=== PATIENT | female | born 1965 | race Caucasian/White ===

== ENCOUNTER → 2017-01-07 | Outpatient (CLI) | payer OTHER ==
[~2017-01-07] MED LIST: /ONDA4TA OR; CIPR500T4 OR; FLEXERIL PO; LIDO5DIS TD; LIDODERM 5% TOP; LISI10TA4 OR; NAPR250T OR; TRAM150C5 PO; TRAZ50TA OR; flexeril PO; motrin PO
--- NOTE | 2017-01-09 09:12 | REP ---
MRI LUMBAR SPINE WITHOUT CONTRAST: 01/07/2017. Comparison: 02/06/2014, X-ray 06/19/2012. Clinical history: Low back pain with radiculopathy bilaterally. Technique: Sagittal T1, T2 and STIR images with axial T1-T2 sequences provided. The normal lordosis is maintained. Disc space heights at L2-3 and L3-4 are maintained and lost at all other levels in the lumbar spine. There is loss of disc water signal at all those levels, least at the L2-3 and L3-4 level. There are some discogenic endplate changes anteriorly at L1-2. Lesser discogenic changes at L4-5 and L5, S1. In the interval, there has been some anterolisthesis of L4 on 5 felt related to facet arthritis. I do not see spondylolysis. At T12-L1, there is no significant disc bulge or herniation and no spinal or foraminal stenosis. The conus terminates at L1-2. At L1-2, minimal disc bulge without spinal or foraminal stenosis. At L2-3, there is a broad-based disc bulge and a left paracentral small disc protrusion. No foraminal encroachment. The neural canal is marginally adequate. Cross-sectional area without lateral recess stenosis. The bulge does abut and slightly displace the left L3 nerve root. At L3-4, there is minimal diffuse disc bulge flattening the ventral thecal sac. Facet hypertrophy and ligamentum flavum hypertrophy noted but cross-sectional area of the canal adequate. Foramina adequate. At L4-5, there is the grade 1 anterolisthesis about 6.5 mm. There is broad-based disc bulge, ligamentum flavum and facet hypertrophy and combined factors are causing fairly tight central canal stenosis at this level. This is significant progression compared to the 2013 study. Foramina show some loss of perineural fat without definite nerve root compression. At L5-S1, there is a broad-based disc bulge flattening the ventral thecal sac. This does not abut or displace the S1 nerve roots within the central canal. The foramina loss of perineural fat. The disc bulges extend into both foramina. There is facet arthritis. Impression: 1. New changes with grade 1 anterolisthesis of L4 on 5 combined with disc bulge, ligamentum flavum and facet hypertrophy to cause a fairly tight spinal stenosis of the central canal foramina marginal but without nerve root compression. 2. New left paracentral disc protrusion at L2-3 abutting the left L3 nerve root in the central canal which otherwise has adequate cross-sectional area. Foramina adequate. 3. Minimal degenerative changes at L1-2 and L3-4 without spinal or foraminal stenosis. 4. The L5-S1 level shows broad-based disc bulge, facet arthritis and foramina only marginal but without nerve root compression. Signed by Trev Pichardo MD 01/09/2017 05:06 P
== END ==
LOC: M RAD 09:34
PROVIDERS: ATTEND Physician Assistant Medical
DX: M43.16 Spondylolisthesis, lumbar region (principal); M48.06 Spinal stenosis, lumbar region; M51.26 Other intervertebral disc displacement, lumbar region; M51.37 Other intervertebral disc degeneration, lumbosacral region; M47.817 Spondylosis without myelopathy or radiculopathy, lumbosacral region

== ENCOUNTER 2017-02-25 17:13 | Emergency (ER) | payer OTHER ==
[~2017-02-25] VITALS: Ht 154.9 cm; Wt 72.6 kg
[2017-02-25 17:15] VITALS: BP 175/102
[2017-02-25] MEDS ORDERED: ALBU17IN (17:26)
[2017-02-25] MEDS ORDERED: ALPR1TAB3 (17:26)
[2017-02-25] MEDS ORDERED: TRAM50TA2 PO (17:26)
[2017-02-25] MEDS ORDERED: ATOR40TA (17:26)
[2017-02-25] MEDS ORDERED: PRAZ2CAP (17:26)
[2017-02-25] MEDS ORDERED: CYCL10TA (17:26)
[2017-02-25] MEDS ORDERED: VITA50003 (17:26)
[2017-02-25] MEDS ORDERED: CLEO300C2 PO (17:52)
[2017-02-25] MEDS ORDERED: CLINDAMYCIN 150 MG CAP PO ONE (18:00)
== END 2017-02-25 18:10 | disposition home or self-care (01) ==
LOC: M ED 17:55
DX: N61.1 Abscess of the breast and nipple (principal); J02.9 Acute pharyngitis, unspecified; Z87.442 Personal history of urinary calculi; M54.5 Low back pain; F41.9 Anxiety disorder, unspecified; F32.9 Major depressive disorder, single episode, unspecified; F17.210 Nicotine dependence, cigarettes, uncomplicated; Z79.899 Other long term (current) drug therapy

== ENCOUNTER → 2017-03-24 | Outpatient (CLI) | payer OTHER ==
[~2017-03-24] MED LIST changes: +ALBU17IN; +ALPR1TAB3; +ATOR40TA; +CLEO300C2 PO; +CYCL10TA; +GASTROGRAFIN SOLUTION 30ML (Q9963) As Ordered ONE; +ISOVUE-370 76% 100ML VIAL (Q9967) As Ordered ONE; +PRAZ2CAP; +TRAM50TA2 PO; +VITA50003
--- NOTE | 2017-03-24 16:27 | REP ---
CT abdomen and pelvis with IV and oral contrast: History: Rectal bleeding and abdominal pain. Black tarry stools. Comparison study: September 17, 2015. CT contrast dose: 100 ml of Isovue [address] findings: Preliminary digital stave jointer view of the abdomen shows an unremarkable bowel gas pattern. The lung bases are clear. There is no evidence of pleural effusion or upper abdominal ascites. The liver and the spleen are normal in size, homogeneous in texture. There is a very small peripheral cyst in the right lobe of the liver near the dome of the diaphragm. This is unchanged. No adrenal lesion is seen on either side. The gallbladder is unremarkable. No pancreatic abnormality is observed. There is focal scarring in the upper pole of the left kidney with two small calcifications, which could be nephrolithiasis. These are unchanged from the prior study as is the cortical atrophy. 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 I do not see duplication beyond the renal pelvis. No ureteral or bladder calculus is observed. Normal caliber aorta is seen. No uterine or adnexal abnormality is observed. A normal appendix is seen. No abdominal wall defect is observed. No bony destructive lesion is seen. There are some degenerative spondylosis changes in the lumbar spine. Impression: Focal scarring and mild collecting system fullness in the upper pole moiety of a partially duplicated left renal collecting system. Two small parenchymal calcifications are seen. This is unchanged from August 2015.2. Otherwise, negative CT study abdomen and pelvis with IV and oral contrast. Normal appendix seen. Signed by Kalia Dey MD 03/24/2017 04:41 P
== END ==
LOC: M RAD 13:42
PROVIDERS: ATTEND Physician Assistant Medical
DX: N28.89 Other specified disorders of kidney and ureter (principal); Q63.8 Other specified congenital malformations of kidney
CPT/HCPCS: 74177; Q9963; Q9967

== ENCOUNTER → 2017-03-28 | Outpatient (CLI) | payer OTHER ==
[~2017-03-28] MED LIST changes: -GASTROGRAFIN SOLUTION 30ML (Q9963) As Ordered ONE; -ISOVUE-370 76% 100ML VIAL (Q9967) As Ordered ONE
--- NOTE | 2017-03-28 22:40 | REP ---
Clinical: Lower back pain. Technique: AP, lateral, bilateral oblique, flexion/extension, and coned-down views of the lumbosacral spine. Findings: Chronic grade 1 anterolisthesis at the L4-5 level of approximately 6 mm is appreciated along with hypertrophic facet changes and minimal disc space narrowing. Advanced hypertrophic facet changes, endplate sclerosis and disc space narrowing with marginal osteophytes noted at the L5-L1 level. Moderate to advanced degenerative disc osteophyte complex noted at the L1-2 level with bridging osteophyte, endplate sclerosis and disc space narrowing. No acute fracture or dislocation. Impression: Chronic stable anterolisthesis at the L4-5 level. Advanced degenerative disc osteophyte complex at the L5-L1 level. Moderate to advanced degenerative disc osteophyte complex at the L1-2 level. Signed by lAtaf Jane MD 03/28/2017 10:31 P
== END ==
LOC: M RAD 13:28
PROVIDERS: ATTEND Neurological Surgery
DX: M43.16 Spondylolisthesis, lumbar region (principal); M25.78 Osteophyte, vertebrae; M54.16 Radiculopathy, lumbar region

== ENCOUNTER → 2017-04-05 | Outpatient (CLI) | payer OTHER ==
--- NOTE | 2017-04-05 15:36 | REP ---
ESOPHAGRAM, AIR CONTRAST: The procedure was performed under the direct supervision of Dr. Dey. The images were reviewed with Dr. Dey. A single view PA chest x-ray is submitted as a construction assistant film. The superior mediastinal structures are midline. The heart size is within normal limits. The lungs are clear. Liquid barium and gas-producing granules were given in the erect position as well as liquid barium in the prone oblique positions in order to perform a double contrast esophagram examination. The oral and pharyngeal stages of deglutition are unremarkable. Note is made of degenerative disc disease of the cervical spine. There is subtle indentation in the right esophagus at the C7 level. This may be related to previous inflammatory disease. There is no mass identified. During esophageal transport there are tertiary waves demonstrated. There is no evidence of esophagitis, stricture, mucosal ring or hiatal hernia. Gastroesophageal reflux is not demonstrated on this examination. IMPRESSION: 1. Tertiary waves. 2. In the right esophagus at the C7 level there is subtle indentation which may be related to previous inflammatory disease. There is no mass identified. 1 minute and 9 seconds of fluoroscopy time was utilized for this procedure. Reviewed by TYLOR Faith 04/06/2017 04:11 PEdited and Signed by Kalia Dey MD 04/06/2017 04:51 P
== END ==
LOC: M RAD 09:06
PROVIDERS: ATTEND Specialist
DX: K21.9 Gastro-esophageal reflux disease without esophagitis (principal)

== ENCOUNTER → 2017-04-05 | Outpatient (CLI) | payer OTHER ==
[~2017-04-05] MED LIST changes: +E-Z-GAS II EFFERVESCENT PACKET (SODIUM BICARB./CITRIC ACID/SIMETHICONE) As Ordered ONE; +E-Z-HD 98% w/w 340GM SUSP BTL As Ordered ONE; +E-Z-PAQUE 96% w/w SUSP 176GM BTL As Ordered ONE
--- NOTE | 2017-04-05 10:08 | REP ---
CT LUMBAR SPINE WITHOUT CONTRAST: HISTORY: Radiculopathy. COMPARISON: MR 01/07/2017. There is no disc bulge or herniation at the L1-2 level. The L1 nerves exit the neural foramina without compression. A diffuse disc bulge and small left paracentral disc protrusion are present at the L2-3 level. There is minimal compression of the thecal sac. The L2 nerves exit the neural foramina without compression. A diffuse disc bulge is present at the L3-4 level. There is minimal compression of the thecal sac. There is hypertrophy of the ligamenta flava and posterior articulating facets. The L3 nerves exit the neural foramina without compression. A diffuse disc bulge is present at the L4-5 level. There is hypertrophy of the ligamenta flava and posterior articulating facets. There are 6 mm of grade 1 spondylolisthesis of L4 on 5. These findings produce severe central canal stenosis. There is compression of the L4 nerves in the neural foramina. A diffuse disc bulge is present at the L5-S1 level. There is minimal compression of the thecal sac. There is hypertrophy of the posterior articulating facets. There is compression of the L5 nerves in the neural foramina. The L4-5 and L5-S1 intervertebral discs are decreased in height consistent with disc degeneration. The vertebral bodies are normal in height. IMPRESSION: 1. Diffuse disc bulge and small left paracentral disc protrusion at the L2-3 level with minimal thecal sac compression. 2. Diffuse disc bulges at the L3-4 and L5-S1 levels with minimal thecal sac compression. There is compression of the L5 nerves in the neural foramina. 3. Severe central canal stenosis at the L4-5 level secondary to disc bulge, ligamentous and facet hypertrophy and grade 1 spondylolisthesis. There is compression of the L4 nerves in the neural foramina. There is no significant change compared to the previous study. Signed by Rohit Rivas MD 04/05/2017 10:13 A
== END ==
LOC: M RAD 09:10
PROVIDERS: ATTEND Neurological Surgery
DX: M51.06 Intervertebral disc disorders with myelopathy, lumbar region (principal); M48.06 Spinal stenosis, lumbar region; M43.16 Spondylolisthesis, lumbar region

== ENCOUNTER → 2017-04-17 | Outpatient (REF) | payer OTHER ==
[~2017-04-17] MED LIST changes: -E-Z-GAS II EFFERVESCENT PACKET (SODIUM BICARB./CITRIC ACID/SIMETHICONE) As Ordered ONE; -E-Z-HD 98% w/w 340GM SUSP BTL As Ordered ONE; -E-Z-PAQUE 96% w/w SUSP 176GM BTL As Ordered ONE
[2017-04-17 14:31] LABS: CALCIUM OXALATE CRYSTALS MODERATE
== END ==
LOC: M LAB REF 13:20
PROVIDERS: ATTEND Urology
DX: N13.30 Unspecified hydronephrosis (principal)

== ENCOUNTER 2017-09-12 15:57 | Inpatient (IN) | payer OTHER ==
[~2017-09-12] VITALS: Ht 154.9 cm; Wt 80.1 kg
[~2017-09-12 15:57] MED LIST changes: -ATOR40TA; +ATOR40TA75; +VITA1CAP40; -VITA50003
[2017-09-12] MEDS ORDERED: ONDANSETRON 4MG/2ML VIAL (J2405) IV ONE (16:30)
[2017-09-12] MEDS ORDERED: MORPHINE 4 MG/ML 1ML SYRINGE IV ONE (16:30)
[2017-09-12 16:49] LABS: BASO # 0.1 10^3/uL (0.0-0.2); BASO % 0.4 % (0.0-1.0); EOS # 0.2 10^3/uL (0.0-0.50); EOS % 1.4 % (0.0-3.0); IMMATURE GRANULOCYTE % 0.3 % (0-0); LYMPH # 3.3 10^3/uL (1.5-4.5); LYMPH % 20.1 % (24.0-44.0); MEAN CORPUSCULAR HEMOGLOBIN 30.9 pg (27.0-33.0); MEAN CORPUSCULAR HGB CONC 32.7 g/dl (32.0-36.5); MEAN CORPUSCULAR VOLUME 94.5 fl (80.0-96.0); MONO # 1.2 10^3/uL (0.0-0.8); MONO % 7.1 % (0.0-5.0); NEUTROPHILS # 11.7 10^3/uL (1.8-7.7); NEUTROPHILS % 70.7 % (36.0-66.0); PLATELET COUNT, AUTOMATED 347 10^3/uL (150-450); WHITE BLOOD COUNT 16.5 10^3/uL (4.0-10.0)
[2017-09-12 17:14] LABS: CALCIUM LEVEL 9.3 MG/DL (8.5-10.1); CREATININE FOR GFR 1.21 MG/DL (0.55-1.02); GLOMERULAR FILTRATION RATE 49.9 (>51); POTASSIUM SERUM 4.2 MEQ/L (3.5-5.1)
--- NOTE | 2017-09-12 17:24 | REP ---
Clinical: Left flank pain. Comparison: 03/24/2017. Findings: The left kidney demonstrates a focal area of cortical scarring along the upper pole with small nonobstructing intrarenal calculi measuring up to 3 mm and findings to suggest duplication to the collecting system with chronic dilatation of the ureter to the upper pole moiety. No acute hydronephrosis or perinephric stranding is appreciated to suggest obvious acute obstruction. The right kidney/ureter appears normal. The bladder is grossly unremarkable. Liver, spleen, pancreas, gallbladder, and bilateral adrenal glands are normal. The enteric system is without obstruction or acute inflammatory process. Colonic diverticula noted without acute diverticulitis. Normal terminal ileum and appendix identified in the right lower quadrant. Pelvis demonstrates normal bladder and age-appropriate uterus/adnexa. No ascites. No adenopathy. No mass lesion. Atherosclerotic changes of the aorta and vasculature noted without aneurysm. Musculoskeletal structures are intact. 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 No acute perinephric stranding or hydronephrosis is appreciated. Correlation with urinalysis may be warranted. The right kidney and bladder appear normal. Signed by Altaf Jane MD 09/12/2017 05:16 P
[2017-09-12] MEDS: MORPHINE 4 MG/ML 1ML SYRINGE IV PRN ×2 (17:28→18:08)
[2017-09-12] MEDS ORDERED: cefTRIAXone SOD 2 GM in D5W 50 ML IV ONE (18:00)
[2017-09-12] MEDS ORDERED: GABA-282 PO (18:56)
[2017-09-12] MEDS ORDERED: PRAZ2CAP PO (18:56)
[2017-09-12] MEDS ORDERED: ZANA4TAB PO (18:56)
[2017-09-12] MEDS ORDERED: ALPR1TAB3 PO (18:56)
[2017-09-12] MEDS ORDERED: DRIS50002 PO (18:56)
[2017-09-12] MEDS ORDERED: MELO15TA4 PO (18:56)
[2017-09-12] MEDS ORDERED: ATOR40TA75 PO (18:56)
[2017-09-12] MEDS ORDERED: TRAM50TA2 PO (18:56)
[2017-09-12] MEDS ORDERED: VENTAER INH (18:56)
[2017-09-12] MEDS ORDERED: PRAZOSIN 1 MG CAP PO PRN (19:00)
[2017-09-12] MEDS ORDERED: ALBUTEROL 90 MCG/ACT 8GM HFA INHALER INH PRN (19:00)
[2017-09-12] MEDS ORDERED: ONDANSETRON 4MG/2ML VIAL (J2405) IV PRN (19:00)
[2017-09-12] MEDS: KETOROLAC 30 MG/ML VIAL (J1885) IV PRN (19:55)
[2017-09-12 20:40] VITALS: BP 132/84
[2017-09-12] MEDS: NS 1,000 ML IV SCH (20:57)
[2017-09-12] MEDS: GABAPENTIN 300 MG CAP PO SCH (20:58)
[2017-09-12] MEDS: tiZANidine 4 MG TAB PO SCH (20:58)
[2017-09-12] MEDS: HEPARIN SOD (PORCINE) 5000 UNITS/ML VIAL SC SCH (21:01)
--- NOTE | 2017-09-12 21:26 | HPEPDOC ---
General Date of Admission Sep 12, 2017 at 18:49 Other Providers Primary care provider: Batool Jaquez Attending Physician: CADEN DAMON MD Chief Complaint The patient is a 51-year-old female admitted with a reason for visit of Pyelonephritis. Source: Patient, RN notes reviewed, Old records Exam Limitations: No limitations Timing/Duration: 4-6 hours History of Present Illness Ms. Perez is a 51-year-old female who presents to [facility]'s Emergency Department with abdominal pain. Past medical history is significant for: anxiety, kidney stones, lichen simplex chronicus, post-traumatic stress disorder, back pain, hypertension (not currently on medication), dyslipidemia. Patient states that urogenital pain started this afternoon. She initially thought she was starting with a urinary tract infection or yeast infection. Denies specific dysuria (reports that urination improves pain), hematuria, urinary urgency, urinary frequency. Denies recent sexual intercourse. Three hours later, after cooking a roast, she developed left-sided lower quadrant pain. It worsened over the next two hours. Initially rated the pain as 15/10. Currently rates it as 8/10. Describes the pain as a squeezing sensation around a ball that lasts approximately 3-7 seconds. The pain subsides, but then seconds later the pain returns. Admits to a history of kidney stones. Admits to menopause symptoms, including hot flashes, night sweats, back pain, left lower quadrant pain. Denies fever, chills, itchy/watery eyes, runny nose, sore throat, post-nasal drainage, epistaxis, hematemesis, hemoptysis, chest pain, shortness of breath, nausea, vomiting, abdominal pain, constipation, diarrhea, hematochezia, melena, peripheral edema, weakness, numbness, tingling, lightheadedness, dizziness, muscle/joint pain. 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 No acute perinephric stranding or hydronephrosis is appreciated. Correlation with urinalysis may be warranted. The right kidney and bladder appear normal." Morphine was provided for pain relief, but patient reports a significant improvement in her pain. Zofran for nausea. One-time dose of IV Rocephin. Hospitalist service was consulted for admission for further evaluation and treatment. Home Medications Scheduled Atorvastatin Calcium (Atorvastatin Calcium) 40 Mg Tab, 40 MG PO DAILY, (Reported ) Gabapentin (Gabapentin) 300 Mg Cap, 300 MG PO TID, (Reported) NEW MED, NOT STARTED Levofloxacin Hemihydrate (Levaquin) 500 Mg Tab, 500 MG PO DAILY Tizanidine Hydrochloride (Zanaflex) 4 Mg Tab, 4 MG PO TID, (Reported) NEW MED, NOT STARTED Vitamin D (Drisdol) 50,000 Unit Cap, 50,000 UNIT PO QWEEK, (Reported) Scheduled PRN Albuterol Sulfate (Ventolin Hfa) 108 Mcg/Act Aer, 2 PUFFS INH QID PRN for SHORTNESS OF BREATH, (Reported) Alprazolam (Alprazolam) 1 Mg Tab, 1 MG PO Q8H PRN for ANXIETY, (Reported) Meloxicam (Meloxicam) 15 Mg Tab, 15 MG PO DAILY PRN for PAIN, (Reported) Oxycodone/Acetaminophen (Percocet 5MG/325MG Tablet) 1 Tab Tab, 2 TAB PO Q4HP PRN for SEVERE PAIN (PS 8-10) Prazosin Hcl (Prazosin HCl) 2 Mg Cap, 2 MG PO QHS PRN for NIGHTMARES, (Reported) Tramadol HCl (Tramadol HCl) 50 Mg Tab, 50 MG PO for BACK PAIN, (Reported) Allergies Coded Allergies: Bee Venom (Unverified Allergy, Unknown, 09/12/17) Past Medical History Medical History 1. Anxiety 2. History of kidney stones 3. Lichen simplex chronicus 4. Post-traumatic stress disorder 5. Back pain 6. History of hypertension, not on medication currently 7. Dyslipidemia Surgical History 1. Right breast lumpectomy 2. Left meniscal repair 3. Tonsillectomy Family History Adopted Social History Lives independently. No pets in the home. Two adult children - one daughter, one son. Two grandchildren - one girl, one boy. Currently disabled and unable to work. Smokes approximately 1 pack of cigarettes per week and has done so since the age of 16. Will occasional consume alcohol. Denies current illicit drug use. Former cocaine dependence a "long time ago." Review of Symptoms Constitutional: Reports: Fever, Night Sweats, Denies: Chills, Malaise, Weakness Eyes: Denies: Vision change, Conjunctivae inflammation, Eyelid inflammation, Redness ENT: Denies: Head Aches, Ear Pain, Dysphagia, Sinus Congestion, Post Nasal Drip , Sore Throat, Epistaxis Skin: Denies: Rash, Lesions, Jaundice, Bruising, Itching, Dry Pulmonary: Denies: Dyspnea, Cough, Pleuritic Chest Pain Cardiovascular: Denies: Chest Pain, Palpitations, Orthopnea, Paroxysmal Noc. Dyspnea, Edema, Lt Headedness Gastrointestinal: Denies: Nausea, Vomiting, Abdominal Pain, Diarrhea, Constipation, Melena, Hematochezia Genitourinary: Denies: Dysuria, Frequency, Incontinence, Hematuria, Retention Hematologic: Denies: Bruising, Bleeding Excessively, Petecchia, Purpura, Enlarged Lymph Nodes Musculoskeletal: Reports: Back Pain, Other Symptoms (left lower quadrant pain) , Denies: Neck Pain, Joint Pain, Muscle Pain Neurological: Denies: Weakness, Numbness Physical Examination General Exam: Positive: Alert, Cooperative, Moderate Distress Eye Exam: Positive: PERRLA, Conjunctiva & lids normal, EOMI, Negative: Sclera icteric ENT Exam: Positive: Atraumatic, Mucous membr. moist/pink, Pharynx Normal, Tongue Midline, Nares Patent, Negative: Pharyngeal Edema Neck Exam: Positive: Supple, +2 carotid pulse wo bruit, Negative: JVD, thyromegaly, Lymphadenopathy Chest Exam: Positive: Clear to auscultation, Normal air movement Heart Exam: Positive: Rate Normal, Tachycardic, Regular Rhythm, Normal S1, Normal S2, Negative: Gallops, Murmurs, Rubs Telemetry: Positive: Sinus, Tachycardia Abdomen Exam: Positive: BS Hypoactive, Soft, Tenderness, Negative: Hepatospenomegaly, Mass, Hernia Extremity Exam: Positive: Normal pulses (tachycardia), Negative: Clubbing, Cyanosis, Edema, Tenderness, Swelling Skin Exam: Positive: Other skin issue (lichen simple chronicus noted on bilateral upper extremities and upper back) Neuro Exam: Positive: Normal Speech, Strength at 5/5 X4 ext, Cranial Nerves 3- [address] NL Other physical findings CT abdomen and pelvis without contrast IMPRESSION: Findings suggesting 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 No acute perinephric stranding or hydronephrosis is appreciated. Correlation with urinalysis may be warranted. The right kidney and bladder appear normal. Vital Signs Vital Signs Date Time Temp Pulse Resp B/P (MAP) Pulse Ox O2 Delivery O2 Flow Rate FiO2 09/12/17 20:40 96.0 70 16 132/84 (100) 96 Room Air Height (in): 61 Weight (kg): 74.2 BMI (kg): 30.9 Laboratory Data Labs 24H Laboratory Tests 2 09/12/17 16:20: Immature Granulocyte % (Auto) 0.3H, White Blood Count 16.5H, Red Blood Count 4.76, Hemoglobin 14.7, Hematocrit 45.0, Mean Corpuscular Volume 94.5, Mean Corpuscular Hemoglobin 30.9, Mean Corpuscular Hemoglobin Concent 32.7, Red Cell Distribution Width 13.0, Platelet Count 347, Neutrophils (%) (Auto) 70.7H, Lymphocytes (%) (Auto) 20.1L, Monocytes (%) (Auto) 7.1H, Eosinophils (%) (Auto) 1.4, Basophils (%) (Auto) 0.4, Neutrophils # (Auto) 11.7H, Lymphocytes # (Auto) 3.3, Monocytes # (Auto) 1.2H, Eosinophils # (Auto) 0.2, Basophils # (Auto) 0.1, Immature Granulocyte # (Auto) 0.1H, Nucleated Red Blood Cells % (auto) 0.0, Anion Gap 6L, Glomerular Filtration Rate 49.9L, Blood Urea Nitrogen 28H, Creatinine 1.21H, Sodium Level 140, Potassium Level 4.2, Chloride Level 104, Carbon Dioxide Level 30, Calcium Level 9.3 09/12/17 16:30: Urine Appearance CLOUDYH, Urine Color YELLOW, Urine pH 6.0, Urine Specific [place] 1.025, Urine Protein 2+H, Urine Glucose (UA) NEGATIVE, Urine Ketones NEGATIVE, Urine Urobilinogen 0.2, Urine Bilirubin NEGATIVE, Urine Leukocyte Esterase 3+H, Urine Blood 3+H, Urine Nitrite NEGATIVE, Urine WBC (Auto) TNTCH, Urine RBC (Auto) TNTCH, Urine Hyaline Casts (Auto) 0, Urine Bacteria (Auto) 2+H , Urine Squamous Epithelial Cells 0, Urine Amorphous Sediment SMALLH, Urine Sperm (Auto) CBC/BMP Laboratory Tests 09/12/17 16:20 Red Blood Count 4.76, Mean Corpuscular Volume 94.5, Mean Corpuscular Hemoglobin 30.9, Mean Corpuscular Hemoglobin Concent 32.7, Red Cell Distribution Width 13.0 , Neutrophils (%) (Auto) 70.7 H, Lymphocytes (%) (Auto) 20.1 L, Monocytes (%) ( Auto) 7.1 H, Eosinophils (%) (Auto) 1.4, Basophils (%) (Auto) 0.4, Neutrophils # (Auto) 11.7 H, Lymphocytes # (Auto) 3.3, Monocytes # (Auto) 1.2 H, Eosinophils # (Auto) 0.2, Basophils # (Auto) 0.1, Calcium Level 9.3 Microbiology Microbiology 09/12/17 Blood Culture, Received Pending 09/12/17 Blood Culture, Received Pending 09/12/17 Urine Culture, Received Pending Plan / VTE VTE Prophylaxis Ordered?: Yes (Heparin 5,000 SC every 8 hours) Plan Plan Pyelonephritis - IVF @125mLs/hr - IV Rocephin 1g every 24 hours - Percocet 1-2 tabs orally every 4 hours as needed for pain - Toradol 15mg orally every 6 hours as needed for pain - Zofran 4mg IV every 6 hours as needed - Regular diet - Monitor BP; likely elevated secondary to pain Anxiety - Continue with Xanax Post-traumatic stress disorder - Continue with Prazosin Back pain - Continue with Xanaflex and Gabapentin - Held Meloxicam and Tramadol as patient is currently being managed with Toradol and Percocet Dyslipidemia - Continue with Lipitor Disposition Admit: Medical-surgical unit Anticipated hospitalization: 2 nights Attending: Dr. Osiris Valdes IVF: Initiate (IVF @125mLs/hr) Diet: Continue Current (Regular) Activity: Continue Current Medications: Change to IV, Increase Pain Meds (Percocet 1/2 tabs every 4 hours as needed, Toradol 15mg every 6 hours as needed), Start Antibiotics (IV Rocephin 1g every 24 hours) Diagnostics: Check Labs, Repeat Labs in AM, Obtain Cultures GME ATTESTATION GME ATTESTATION My faculty preceptor for this patient encounter was physically present during the encounter and was fully available. All aspects of the patient interview, examination, medical decision making process, and medical care plan development were reviewed and approved by the faculty preceptor. The faculty preceptor is aware and concurs with the plan as stated in the body of this note and will attest to such by his/her cosignature. ATTENDING NOTE I have both independently examined this patient as well as reviewed the H&P. I have discussed in detail with the resident the findings and plan of treatment as documented in the residents note. I will continue to follow the patient and offer further guidance to the patients care as necessary during this hospital stay. VANDANA Landrum MDMELoree Sep 12, 2017 21:26 CADEN DAMON MD Sep 16, 2017 11:27
[2017-09-13] MEDS: NS 1,000 ML IV SCH ×2 (04:45→09:37)
[2017-09-13] MEDS: PERCOCET 5MG/325MG TAB PO PRN ×4 (04:51→22:23)
[2017-09-13] MEDS: ALPRAZolam 0.5 MG TAB PO PRN ×2 (05:45→20:26)
[2017-09-13] MEDS: HEPARIN SOD (PORCINE) 5000 UNITS/ML VIAL SC SCH ×3 (05:47→21:24)
[2017-09-13 06:00] VITALS: BP 122/84
[2017-09-13 06:31] LABS: BASO % 0.4 % (0.0-1.0); EOS # 0.3 10^3/uL (0.0-0.50); EOS % 2.4 % (0.0-3.0); IMMATURE GRANULOCYTE % 0.4 % (0-0); LYMPH # 2.9 10^3/uL (1.5-4.5); LYMPH % 25.2 % (24.0-44.0); MEAN CORPUSCULAR HEMOGLOBIN 31.4 pg (27.0-33.0); MEAN CORPUSCULAR HGB CONC 33.2 g/dl (32.0-36.5); MEAN CORPUSCULAR VOLUME 94.4 fl (80.0-96.0); MONO # 1.2 10^3/uL (0.0-0.8); MONO % 10.2 % (0.0-5.0); NEUTROPHILS % 61.4 % (36.0-66.0); PLATELET COUNT, AUTOMATED 275 10^3/uL (150-450); RED CELL DISTRIBUTION WIDTH 13.2 % (11.5-14.5); WHITE BLOOD COUNT 11.3 10^3/uL (4.0-10.0)
[2017-09-13 06:52] LABS: ANION GAP 8 MEQ/L (8-16); BLOOD UREA NITROGEN 21 MG/DL (7-18); CALCIUM LEVEL 8.1 MG/DL (8.5-10.1); CARBON DIOXIDE LEVEL 22 MEQ/L (21-32); CHLORIDE LEVEL 108 MEQ/L (98-107); CREATININE FOR GFR 0.67 MG/DL (0.55-1.02); GLOMERULAR FILTRATION RATE > 60.0 (>51); GLUCOSE, FASTING 93 MG/DL (70-105); MAGNESIUM LEVEL 1.8 MG/DL (1.8-2.4); POTASSIUM SERUM 4.5 MEQ/L (3.5-5.1); SODIUM LEVEL 138 MEQ/L (136-145)
[2017-09-13] MEDS: KETOROLAC 30 MG/ML VIAL (J1885) IV PRN ×3 (09:31→18:09)
[2017-09-13] MEDS: tiZANidine 4 MG TAB PO SCH ×3 (09:34→20:26)
[2017-09-13] MEDS: GABAPENTIN 300 MG CAP PO SCH ×3 (09:34→20:26)
[2017-09-13] MEDS: ATORVASTATIN 20 MG TAB PO SCH (09:34)
--- NOTE | 2017-09-13 11:10 | IPNPDOC ---
Date Seen The patient was seen on 09/13/17. Progress Note SUBJECTIVE: Patient is a 51-year-old female with past medical history of: anxiety; hx of kidney stones; lichen simplex chronicus; post-traumatic stress disorder; back pain; history of hypertension, not currently treated; dyslipidemia; presenting on 09/13/2017 with pyelonephritis. Today, she was seen bedside, seated in bed in mild apparent distress. She states she had significant pain throughout the night but did not know she could ask for pain medication, which had been ordered. She finally received 2tab Percocet 5/325 at 5am this morning, with relief in pain, currently reporting 5/ 10 down from 8/10 from earlier this morning. Presently she denies fever/chills different from typical menopause symptoms she has, lightheadedness, dizziness, headache, chest pain, difficulty breathing, shortness of breath, cough, nausea, vomiting. OBJECTIVE PHYSICAL EXAMINATION: VITAL SIGNS: Please see below. GENERAL: Well-appearing female in mild apparent distress, appearing her stated age. HEENT: Atraumatic, normocephalic. EOMI. Neck supple. CARDIOVASCULAR: Normal S1/S2, regular rate; no noted rubs, gallops or murmurs RESPIRATORY: Clear to auscultation in all conrad bilaterally. ABDOMINAL: Soft, non-tender, no peritoneal signs. Normoactive bowel sounds. EXTREMITIES: Moving all extremities NEUROLOGICAL: CN II-XII grossly intact PSYCHOLOGICAL: Anxious about pain, hospital course, disease process. Explained that she can ask for medication whenever she is in pain, explained the planned hospital course, and described the disease process which helped to ease her anxiety. LABORATORY DATA: Please see below. MICROBIOLOGY: Please see below. 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 No acute perinephric stranding or hydronephrosis is appreciated. Correlation with urinalysis may be warranted. The right kidney and bladder appear normal. DVT prophylaxis ordered?: Heparin 5000units SQ q8h ASSESSMENT AND PLAN: This is a 51-year-old female with pyelonephritis. PROBLEMS: 1. Pyelonephritis: - NS 125mL/hr IV Q8H. - Ceftriaxone 1g IV q24h. - Percocet 3/325 PO Q4H PRN pain. - Toradol 15mg IV Q6H PRN pain. - Zofran 4mg IV Q6H PRN nausea. - Regular diet. 2. Back pain: - Neurontin 300mg PO TID. - Zanaflex 4mg PO TID. 3. Anxiety: - Alprazolam 1mg PO q8h prn anxiety. DISPOSITION: Med/surg. Likely d/c in the next 24 hours. VS, I&O, 24H, Fishbone Vital Signs/I&O Vital Signs Date Time Temp Pulse Resp B/P (MAP) Pulse Ox O2 Delivery O2 Flow Rate FiO2 09/13/17 06:00 98.0 78 21 122/84 (97) 97 Room Air I&O- Last 24 Hours up to 6 AM 09/14/17 06:00 Intake Total 0 ml Output Total 0 ml Balance 0 ml Laboratory Data 24H LABS Laboratory Tests 2 09/12/17 16:20: Immature Granulocyte % (Auto) 0.3H, White Blood Count 16.5H, Red Blood Count 4.76, Hemoglobin 14.7, Hematocrit 45.0, Mean Corpuscular Volume 94.5, Mean Corpuscular Hemoglobin 30.9, Mean Corpuscular Hemoglobin Concent 32.7, Red Cell Distribution Width 13.0, Platelet Count 347, Neutrophils (%) (Auto) 70.7H, Lymphocytes (%) (Auto) 20.1L, Monocytes (%) (Auto) 7.1H, Eosinophils (%) (Auto) 1.4, Basophils (%) (Auto) 0.4, Neutrophils # (Auto) 11.7H, Lymphocytes # (Auto) 3.3, Monocytes # (Auto) 1.2H, Eosinophils # (Auto) 0.2, Basophils # (Auto) 0.1, Immature Granulocyte # (Auto) 0.1H, Nucleated Red Blood Cells % (auto) 0.0, Anion Gap 6L, Glomerular Filtration Rate 49.9L, Blood Urea Nitrogen 28H, Creatinine 1.21H, Sodium Level 140, Potassium Level 4.2, Chloride Level 104, Carbon Dioxide Level 30, Calcium Level 9.3 09/12/17 16:30: Urine Appearance CLOUDYH, Urine Color YELLOW, Urine pH 6.0, Urine Specific [place] 1.025, Urine Protein 2+H, Urine Glucose (UA) NEGATIVE, Urine Ketones NEGATIVE, Urine Urobilinogen 0.2, Urine Bilirubin NEGATIVE, Urine Leukocyte Esterase 3+H, Urine Blood 3+H, Urine Nitrite NEGATIVE, Urine WBC (Auto) TNTCH, Urine RBC (Auto) TNTCH, Urine Hyaline Casts (Auto) 0, Urine Bacteria (Auto) 2+H , Urine Squamous Epithelial Cells 0, Urine Amorphous Sediment SMALLH, Urine Sperm (Auto) 09/13/17 06:04: Immature Granulocyte % (Auto) 0.4H, White Blood Count 11.3H, Red Blood Count 3.92L, Hemoglobin 12.3#, Hematocrit 37.0, Mean Corpuscular Volume 94.4, Mean Corpuscular Hemoglobin 31.4, Mean Corpuscular Hemoglobin Concent 33.2, Red Cell Distribution Width 13.2, Platelet Count 275, Neutrophils (%) (Auto) 61.4, Lymphocytes (%) (Auto) 25.2, Monocytes (%) (Auto) 10.2H, Eosinophils (%) (Auto) 2.4, Basophils (%) (Auto) 0.4, Neutrophils # (Auto) 7.0, Lymphocytes # (Auto) 2.9, Monocytes # (Auto) 1.2H, Eosinophils # (Auto) 0.3, Basophils # (Auto) 0.0, Immature Granulocyte # (Auto) 0.1H, Nucleated Red Blood Cells % (auto) 0.0, Anion Gap 8, Glomerular Filtration Rate > 60.0, Blood Urea Nitrogen 21H, Creatinine 0.67, Sodium Level 138, Potassium Level 4.5, Chloride Level 108H, Carbon Dioxide Level 22, Calcium Level 8.1L, Magnesium Level 1.8, C-Reactive Protein, Quantitative 1.54H CBC/BMP Laboratory Tests 09/12/17 16:20 Red Blood Count 4.76, Mean Corpuscular Volume 94.5, Mean Corpuscular Hemoglobin 30.9, Mean Corpuscular Hemoglobin Concent 32.7, Red Cell Distribution Width 13.0 , Neutrophils (%) (Auto) 70.7 H, Lymphocytes (%) (Auto) 20.1 L, Monocytes (%) ( Auto) 7.1 H, Eosinophils (%) (Auto) 1.4, Basophils (%) (Auto) 0.4, Neutrophils # (Auto) 11.7 H, Lymphocytes # (Auto) 3.3, Monocytes # (Auto) 1.2 H, Eosinophils # (Auto) 0.2, Basophils # (Auto) 0.1, Calcium Level 9.3 09/13/17 06:04 Red Blood Count 3.92 L, Mean Corpuscular Volume 94.4, Mean Corpuscular Hemoglobin 31.4, Mean Corpuscular Hemoglobin Concent 33.2, Red Cell Distribution Width 13.2, Neutrophils (%) (Auto) 61.4, Lymphocytes (%) (Auto) 25.2, Monocytes (%) (Auto) 10.2 H, Eosinophils (%) (Auto) 2.4, Basophils (%) ( Auto) 0.4, Neutrophils # (Auto) 7.0, Lymphocytes # (Auto) 2.9, Monocytes # (Auto ) 1.2 H, Eosinophils # (Auto) 0.3, Basophils # (Auto) 0.0, Calcium Level 8.1 L Microbiology Microbiology 09/12/17 Blood Culture, Received Pending 09/12/17 Blood Culture, Received Pending 09/12/17 Urine Culture, Received Pending VANDANA TALLEY-I Sep 13, 2017 08:50
[2017-09-13 14:00] VITALS: BP 125/63
[2017-09-13] MEDS ORDERED: cefTRIAXone SOD 1 GM in D5W 50 ML IV SCH (18:00)
--- NOTE | 2017-09-13 21:50 | REPUSA ---
HISTORY: Chest pain. COMPARISON: None provided. CHEST, FRONTAL: Heart: No cardiomegaly. Lungs: No lobar infiltrate, pulmonary edema, pneumothorax or significant effusion. Skeleton: Intact. IMPRESSION: No acute thoracic process.
[2017-09-13 22:00] VITALS: BP 157/92
--- NOTE | 2017-09-13 22:20 | IPNPDOC ---
Text Note Date of Service The patient was seen on 09/13/17. NOTE Called to see pt. at 2100 for chest discomfort located on the left anterior chest wall. Described as an ache worsened with placing pressure on the area, not worse with inspiration. Denied heart racing nor n/v or sweating nor jaw or shoulder discomfort. CXR did not reveal rib fracture nor lung abnormality to account for CP., EKG NSR with no signs of active ischemia. Pt. states that a heating pad would help. Will order this and continue to monitor. Vitals stable. -CK VS,Fishbone, I+O VS, Fishbone, I+O Laboratory Tests 09/13/17 06:04 Red Blood Count 3.92 L, Mean Corpuscular Volume 94.4, Mean Corpuscular Hemoglobin 31.4, Mean Corpuscular Hemoglobin Concent 33.2, Red Cell Distribution Width 13.2, Neutrophils (%) (Auto) 61.4, Lymphocytes (%) (Auto) 25.2, Monocytes (%) (Auto) 10.2 H, Eosinophils (%) (Auto) 2.4, Basophils (%) ( Auto) 0.4, Neutrophils # (Auto) 7.0, Lymphocytes # (Auto) 2.9, Monocytes # (Auto ) 1.2 H, Eosinophils # (Auto) 0.3, Basophils # (Auto) 0.0, Calcium Level 8.1 L Vital Signs Date Time Temp Pulse Resp B/P (MAP) Pulse Ox O2 Delivery O2 Flow Rate FiO2 09/13/17 22:00 97.4 75 19 157/92 (113) 99 Room Air I&O- Last 24 Hours up to 6 AM 09/14/17 06:00 Intake Total 840 ml Output Total 900 ml Balance -60 ml GME ATTESTATION GME ATTESTATION My faculty preceptor for this patient encounter was physically present during the encounter and was fully available. All aspects of the patient interview, examination, medical decision making process, and medical care plan development were reviewed and approved by the faculty preceptor. The faculty preceptor is aware and concurs with the plan as stated in the body of this note and will attest to such by his/her cosignature. ATTENDING NOTE I was not present for this interaction and the case was not presented to Me. ANNA LINDSEY DO Sep 13, 2017 22:20 JAVED DELACRUZ MD Sep 15, 2017 20:15
[2017-09-13 22:22] VITALS: BP 139/72
[2017-09-14] MEDS: NS 1,000 ML IV SCH (01:14)
[2017-09-14] MEDS: PERCOCET 5MG/325MG TAB PO PRN ×3 (05:49→15:03)
[2017-09-14 06:00] VITALS: BP 106/68
[2017-09-14] MEDS ORDERED: LevoFLOXacin 750 MG TABLET PO SCH (06:00)
[2017-09-14] MEDS: HEPARIN SOD (PORCINE) 5000 UNITS/ML VIAL SC SCH ×3 (06:00→21:49)
[2017-09-14 06:24] LABS: BASO % 0.6 % (0.0-1.0); EOS # 0.3 10^3/uL (0.0-0.50); EOS % 4.3 % (0.0-3.0); IMMATURE GRANULOCYTE % 0.3 % (0-0); LYMPH # 2.3 10^3/uL (1.5-4.5); LYMPH % 35.7 % (24.0-44.0); MEAN CORPUSCULAR HEMOGLOBIN 30.5 pg (27.0-33.0); MEAN CORPUSCULAR HGB CONC 31.5 g/dl (32.0-36.5); MEAN CORPUSCULAR VOLUME 96.9 fl (80.0-96.0); MONO # 0.7 10^3/uL (0.0-0.8); MONO % 10.7 % (0.0-5.0); NEUTROPHILS # 3.1 10^3/uL (1.8-7.7); NEUTROPHILS % 48.4 % (36.0-66.0); PLATELET COUNT, AUTOMATED 240 10^3/uL (150-450); RED CELL DISTRIBUTION WIDTH 13.2 % (11.5-14.5); WHITE BLOOD COUNT 6.5 10^3/uL (4.0-10.0)
[2017-09-14 06:36] LABS: ANION GAP 7 MEQ/L (8-16); BLOOD UREA NITROGEN 15 MG/DL (7-18); CARBON DIOXIDE LEVEL 26 MEQ/L (21-32); CHLORIDE LEVEL 112 MEQ/L (98-107); CREATININE FOR GFR 0.55 MG/DL (0.55-1.02); GLOMERULAR FILTRATION RATE > 60.0 (>51); GLUCOSE, FASTING 87 MG/DL (70-105); MAGNESIUM LEVEL 1.8 MG/DL (1.8-2.4); SODIUM LEVEL 145 MEQ/L (136-145)
[2017-09-14 08:56] VITALS: BP 127/77
[2017-09-14] MEDS: tiZANidine 4 MG TAB PO SCH ×3 (09:18→20:12)
[2017-09-14] MEDS: GABAPENTIN 300 MG CAP PO SCH ×3 (09:18→20:12)
[2017-09-14] MEDS: ATORVASTATIN 20 MG TAB PO SCH (09:18)
--- NOTE | 2017-09-14 09:19 | IPNPDOC ---
Date Seen The patient was seen on 09/14/17. Progress Note SUBJECTIVE: Patient is a 51-year-old female with abdominal and left flank pain found to have pyelonephritis. Patient is examined at bedside this morning. She reported chest overnight and a portable chest x-ray, EKG, and cardiac markers were obtained. All were negative. This morning patient continues to report anterior left-sided chest pain that it worsened with palpation of the area. No radiating pain or diaphoresis. Bedside EKG this morning did not reveal any ischemia or arrhythmia. Continues to report subjective suprapubic pelvic pain. Denies fever, night sweats, chills, shortness of breath, nausea, vomiting. Has a history of anxiety and takes Xanax as needed. OBJECTIVE PHYSICAL EXAMINATION: VITAL SIGNS: Please see below. GENERAL: Well nourished, well developed female, wearing hospital gown, somewhat anxious, no overt acute distress HEENT: Atraumatic, normocephalic, PERRL, EOMI, oral mucosa appears pink and moist, nasal septum appears midline, nares are patent CARDIOVASCULAR: Regular rate and rhythm, EKG without signs of ischemia, possible occasional premature contraction, normal S1 and S2, no murmur, rub, click RESPIRATORY: Clear to auscultation bilaterally, adequate inspiratory and expiratory airway excursion, no wheeze, rhonchi, crackles, lichen simplex chronicus noted on upper back ABDOMINAL: Soft, non-tender with palpation across abdomen and pelvis, non- distended, bowel sounds appreciated EXTREMITIES: Radial and posterior tibial pulses equal and symmetrical, +2, no edema, lichen simplex chronicus appreciated on upper extremities bilaterally NEUROLOGICAL: CN II-XII grossly intact PSYCHOLOGICAL: Alert and conversant, pleasant LABORATORY DATA: Please see below. MICROBIOLOGY: Please see below. IMAGING: Portable chest x-ray IMPRESSION: No acute thoracic process. DVT prophylaxis ordered?: Heparin 5,000 units SC every 8 hours -- patient refused this AM. ASSESSMENT AND PLAN: This is a 51-year-old female with abdominal and left flank pain found to have pyelonephritis. PROBLEMS: 1. Pyelonephritis: Currently on IV Rocephin. Urine culture returned and is positive for E. coli. Have switched antibiotic to Levaquin 750mg daily. 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 Upon discharge patient will need to be continued on antibiotic therapy for 2 weeks. Continue with Toradol and Percocet. 2. Chest pain: Evaluated last evening and EKG, chest x-ray, and cardiac markers were negative. Repeat EKG this morning was negative. Pleuritic in nature. Patient is on Toradol for pain which will also help alleviate the chest pain. 3. Anxiety: Continue with as needed Xanax. 4. Migraine headache: Continue with as needed Prazosin. 5. Chronic pain: Continue with Zanaflex and Gabapentin. 6. Dyslipidemia: Continue with Lipitor. DISPOSITION: Currently admitted to [address] [place] [address]. Possible discharge in the next 24 hours. VS, I&O, 24H, [facility] Vital Signs/I&O Vital Signs Date Time Temp Pulse Resp B/P (MAP) Pulse Ox O2 Delivery O2 Flow Rate FiO2 09/14/17 08:56 98.5 82 18 127/77 (94) 99 Room Air Laboratory Data 24H LABS Laboratory Tests 2 09/13/17 21:30: Total Creatine Kinase 62, Creatine Kinase MB 1.0, Creatine Kinase MB Relative Index 1.61, Troponin I < 0.02 09/14/17 05:59: Immature Granulocyte % (Auto) 0.3H, White Blood Count 6.5, Red Blood Count 3.83L , Hemoglobin 11.7L, Hematocrit 37.1, Mean Corpuscular Volume 96.9H, Mean Corpuscular Hemoglobin 30.5, Mean Corpuscular Hemoglobin Concent 31.5L, Red Cell Distribution Width 13.2, Platelet Count 240, Neutrophils (%) (Auto) 48.4, Lymphocytes (%) (Auto) 35.7, Monocytes (%) (Auto) 10.7H, Eosinophils (%) (Auto) 4.3H, Basophils (%) (Auto) 0.6, Neutrophils # (Auto) 3.1, Lymphocytes # (Auto) 2.3, Monocytes # (Auto) 0.7, Eosinophils # (Auto) 0.3, Basophils # (Auto) 0.0, Immature Granulocyte # (Auto) 0.0, Nucleated Red Blood Cells % (auto) 0.0, Anion Gap 7L, Glomerular Filtration Rate > 60.0, Blood Urea Nitrogen 15, Creatinine 0.55, Sodium Level 145#, Potassium Level 4.0, Chloride Level 112H, Carbon Dioxide Level 26, Calcium Level 8.0L, Magnesium Level 1.8, C-Reactive Protein, Quantitative 1.63H CBC/BMP Laboratory Tests 09/14/17 05:59 Red Blood Count 3.83 L, Mean Corpuscular Volume 96.9 H, Mean Corpuscular Hemoglobin 30.5, Mean Corpuscular Hemoglobin Concent 31.5 L, Red Cell Distribution Width 13.2, Neutrophils (%) (Auto) 48.4, Lymphocytes (%) (Auto) 35.7, Monocytes (%) (Auto) 10.7 H, Eosinophils (%) (Auto) 4.3 H, Basophils (%) ( Auto) 0.6, Neutrophils # (Auto) 3.1, Lymphocytes # (Auto) 2.3, Monocytes # (Auto ) 0.7, Eosinophils # (Auto) 0.3, Basophils # (Auto) 0.0, Calcium Level 8.0 L Microbiology Microbiology 09/12/17 Blood Culture - Preliminary, Resulted No growth after 24 hours . All specim... 09/12/17 Blood Culture - Preliminary, Resulted No growth after 24 hours . All specim... 09/12/17 Urine Culture - Final, Complete Escherichia Coli VANDANA TALLEY-Tariq Sep 14, 2017 09:19
[2017-09-14] MEDS: ALPRAZolam 0.5 MG TAB PO PRN ×2 (10:46→20:12)
[2017-09-14 14:00] VITALS: BP 115/68
[2017-09-14] MEDS: KETOROLAC 30 MG/ML VIAL (J1885) IV PRN (15:04)
[2017-09-14] MEDS ORDERED: CEFTRIAXONE SOD 1 GM in APPROPRIATE DILUENT 1 EA IV SCH (18:00)
[2017-09-14 22:00] VITALS: BP 133/74
[2017-09-15] MEDS: KETOROLAC 30 MG/ML VIAL (J1885) IV PRN (03:11)
[2017-09-15] MEDS: HEPARIN SOD (PORCINE) 5000 UNITS/ML VIAL SC SCH (05:49)
[2017-09-15 06:00] VITALS: BP 137/89
[2017-09-15 06:18] LABS: BASO % 0.3 % (0.0-1.0); EOS # 0.3 10^3/uL (0.0-0.50); EOS % 4.2 % (0.0-3.0); IMMATURE GRANULOCYTE % 0.4 % (0-0); LYMPH # 2.4 10^3/uL (1.5-4.5); LYMPH % 32.9 % (24.0-44.0); MEAN CORPUSCULAR HEMOGLOBIN 30.7 pg (27.0-33.0); MEAN CORPUSCULAR HGB CONC 32.5 g/dl (32.0-36.5); MEAN CORPUSCULAR VOLUME 94.7 fl (80.0-96.0); MONO # 0.9 10^3/uL (0.0-0.8); MONO % 12.1 % (0.0-5.0); NEUTROPHILS # 3.7 10^3/uL (1.8-7.7); NEUTROPHILS % 50.1 % (36.0-66.0); PLATELET COUNT, AUTOMATED 236 10^3/uL (150-450); RED CELL DISTRIBUTION WIDTH 13.2 % (11.5-14.5); WHITE BLOOD COUNT 7.3 10^3/uL (4.0-10.0)
[2017-09-15 06:32] LABS: ANION GAP 5 MEQ/L (8-16); BLOOD UREA NITROGEN 15 MG/DL (7-18); CALCIUM LEVEL 8.4 MG/DL (8.5-10.1); CARBON DIOXIDE LEVEL 28 MEQ/L (21-32); CHLORIDE LEVEL 112 MEQ/L (98-107); CREATININE FOR GFR 0.62 MG/DL (0.55-1.02); GLOMERULAR FILTRATION RATE > 60.0 (>51); GLUCOSE, FASTING 87 MG/DL (70-105); MAGNESIUM LEVEL 1.6 MG/DL (1.8-2.4); POTASSIUM SERUM 4.4 MEQ/L (3.5-5.1); SODIUM LEVEL 145 MEQ/L (136-145)
[2017-09-15 07:44] VITALS: BP 167/77
[2017-09-15] MEDS ORDERED: MAGNESIUM GLUCONATE 500 MG TAB PO ONE (08:00)
[2017-09-15] MEDS: tiZANidine 4 MG TAB PO SCH (08:50)
[2017-09-15] MEDS: GABAPENTIN 300 MG CAP PO SCH (08:50)
[2017-09-15] MEDS: ATORVASTATIN 20 MG TAB PO SCH (08:50)
[2017-09-15] MEDS: PERCOCET 5MG/325MG TAB PO PRN (09:08)
[2017-09-15] MEDS: ALPRAZolam 0.5 MG TAB PO PRN (09:08)
[2017-09-15] MEDS ORDERED: PERCOCET PO (09:09)
[2017-09-15] MEDS ORDERED: LEVA1TAB2 PO (09:18)
--- NOTE | 2017-09-15 09:40 | DS.PDOC ---
Discharge Summary General Date of Admission Sep 12, 2017 at 18:49 Date of Discharge 09/15/2017 Attending Physician: GAIL KLINE MD Specialist/Consultants [facility] Primary care provider: JARRETT Zapata Discharge Summary PROCEDURES PERFORMED DURING STAY: None. ADMITTING DIAGNOSES: 1. Pyelonephritis. SECONDARY DIAGNOSES: 1. Anxiety. 2. PTSD. 3. Dyslipidemia. 4. Back pain. DISCHARGE DIAGNOSES: 1. Pyelonephritis. 2. 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 3. Renal stone COMPLICATIONS/CHIEF COMPLAINT: Pyelonephritis. HISTORY OF PRESENT ILLNESS: Ms. Perez is a 51-year-old female who presents to [facility]'s Emergency Department with abdominal pain. Past medical history is significant for: anxiety, kidney stones, lichen simplex chronicus, post-traumatic stress disorder, back pain, hypertension (not currently on medication), dyslipidemia. Patient states that urogenital pain started this afternoon. She initially thought she was starting with a urinary tract infection or yeast infection. Denies specific dysuria (reports that urination improves pain), hematuria, urinary urgency, urinary frequency. Denies recent sexual intercourse. Three hours later, after cooking a roast, she developed left-sided lower quadrant pain. It worsened over the next two hours. Initially rated the pain as 15/10. Currently rates it as 8/10. Describes the pain as a squeezing sensation around a ball that lasts approximately 3-7 seconds. The pain subsides, but then seconds later the pain returns. Admits to a history of kidney stones. Admits to menopause symptoms, including hot flashes, night sweats, back pain, left lower quadrant pain. Denies fever, chills, itchy/watery eyes, runny nose, sore throat, post-nasal drainage, epistaxis, hematemesis, hemoptysis, chest pain, shortness of breath, nausea, vomiting, abdominal pain, constipation, diarrhea, hematochezia, melena, peripheral edema, weakness, numbness, tingling, lightheadedness, dizziness, muscle/joint pain. 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 No acute perinephric stranding or hydronephrosis is appreciated. Correlation with urinalysis may be warranted. The right kidney and bladder appear normal." Morphine was provided for pain relief, but patient reports a significant improvement in her pain. Zofran for nausea. One-time dose of IV Rocephin. Hospitalist service was consulted for admission for further evaluation and treatment. HOSPITAL COURSE: Patient was admitted. IVF was started. IV Rocephin. Switched to oral Levaquin 500mg daily for two weeks at time of discharge. Received Percocet and Toradol for pain. Held patient's home medications of Tramadol and Meloxicam. Zofran for nausea. Continued patient's Xanax as needed and Prazosin for anxiety/PTSD. Xanaflex and Gabapentin continued for back pain. Continued Lipitor. Patient experienced chest pain, but a bedside evaluation with EKG, portable chest x-ray, and follow-up cardiac markers did not reveal rib fracture, lung abnormality, or cardiac ischemia. Patient improved clinically throughout hospitalization and was stable at time of discharge. DISCHARGE MEDICATIONS: Please see below. ALLERGIES: Please see below. PHYSICAL EXAMINATION ON DISCHARGE: VITAL SIGNS: Please see below. GENERAL: Well nourished, well developed female, wearing hospital gown, appears stated age, no acute distress HEENT: Atraumatic, normocephalic, PERRL, EOMI, oral mucosa appears pink and moist, skin on face has several areas of healed excoriation, nasal septum appears midline, nares are patent NECK: Supple, soft, trachea midline, no lymphadenopathy CARDIOVASCULAR EXAMINATION: Regular rate and rhythm, normal S1 and S2, no murmur , rub, click RESPIRATORY EXAMINATION: Clear to auscultation bilaterally, adequate inspiratory and expiratory airway excursion, no wheeze, rhonchi, crackles ABDOMINAL EXAMINATION: Round, somewhat distended, but non-tender, no organomegaly, no rebound, no guarding EXTREMITIES: Radial pulses equal and symmetrical, +2, healed excoriations noted on back and upper extremities bilaterally SKIN: Warm, dry, intact, without edema, other findings as noted above NEUROLOGICAL EXAMINATION: CN II-XII grossly intact PSYCHIATRIC EXAMINATION: Alert and conversant, pleasant LABORATORY DATA: Please see below. 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 No acute perinephric stranding or hydronephrosis is appreciated. Correlation with urinalysis may be warranted. The right kidney and bladder appear normal. Portable chest x-ray IMPRESSION: No acute thoracic process. PROGNOSIS: Stable. ACTIVITY: As tolerated. DIET: Renal diet. DISCHARGE PLAN: Home. DISPOSITION: . DISCHARGE INSTRUCTIONS: 1. Complete antibiotic course. 2. Take a probiotic while on the antibiotic. 3. Continue taking your regularly scheduled home medications. 4. Follow-up with primary care provider, JARRETT Zapata in 7-10 days. 5. Could consider obtaining a follow-up urinalysis. 6. Follow a renal diet and limit the amount of salt, potassium, and phosphorus in your diet. ITEMS TO FOLLOWUP ON ON OUTPATIENT: 1. Pyelonephritis. 2. Anxiety and PTSD. DISCHARGE CONDITION: Stable. TIME SPENT ON DISCHARGE: Greater than 30 minutes. Vital Signs/I&Os Vital Signs Date Time Temp Pulse Resp B/P (MAP) Pulse Ox O2 Delivery O2 Flow Rate FiO2 09/15/17 07:44 78 167/77 (107) 09/15/17 06:00 96.9 20 100 09/14/17 21:00 Room Air Laboratory Data Labs 24H Laboratory Tests 2 09/15/17 05:53: Immature Granulocyte % (Auto) 0.4H, White Blood Count 7.3, Red Blood Count 3.74L , Hemoglobin 11.5L, Hematocrit 35.4L, Mean Corpuscular Volume 94.7, Mean Corpuscular Hemoglobin 30.7, Mean Corpuscular Hemoglobin Concent 32.5, Red Cell Distribution Width 13.2, Platelet Count 236, Neutrophils (%) (Auto) 50.1, Lymphocytes (%) (Auto) 32.9, Monocytes (%) (Auto) 12.1H, Eosinophils (%) (Auto) 4.2H, Basophils (%) (Auto) 0.3, Neutrophils # (Auto) 3.7, Lymphocytes # (Auto) 2.4, Monocytes # (Auto) 0.9H, Eosinophils # (Auto) 0.3, Basophils # (Auto) 0.0, Immature Granulocyte # (Auto) 0.0, Nucleated Red Blood Cells % (auto) 0.0, Anion Gap 5L, Glomerular Filtration Rate > 60.0, Blood Urea Nitrogen 15, Creatinine 0.62, Sodium Level 145, Potassium Level 4.4, Chloride Level 112H, Carbon Dioxide Level 28, Calcium Level 8.4L, Magnesium Level 1.6L, C-Reactive Protein, Quantitative 0.73H CBC/BMP Laboratory Tests 09/15/17 05:53 Red Blood Count 3.74 L, Mean Corpuscular Volume 94.7, Mean Corpuscular Hemoglobin 30.7, Mean Corpuscular Hemoglobin Concent 32.5, Red Cell Distribution Width 13.2, Neutrophils (%) (Auto) 50.1, Lymphocytes (%) (Auto) 32.9, Monocytes (%) (Auto) 12.1 H, Eosinophils (%) (Auto) 4.2 H, Basophils (%) ( Auto) 0.3, Neutrophils # (Auto) 3.7, Lymphocytes # (Auto) 2.4, Monocytes # (Auto ) 0.9 H, Eosinophils # (Auto) 0.3, Basophils # (Auto) 0.0, Calcium Level 8.4 L Microbiology Microbiology 09/12/17 Blood Culture - Preliminary, Resulted No Growth after 48 hours. All Specime... 09/12/17 Blood Culture - Preliminary, Resulted No Growth after 48 hours. All Specime... 09/12/17 Urine Culture - Final, Complete Escherichia Coli Discharge Medications Scheduled Gabapentin (Gabapentin) 300 Mg Cap, 300 MG PO TID, (Reported) NEW MED, NOT STARTED Levofloxacin Hemihydrate (Levaquin) 500 Mg Tab, 500 MG PO DAILY Tizanidine Hydrochloride (Zanaflex) 4 Mg Tab, 4 MG PO TID, (Reported) NEW MED, NOT STARTED Vitamin D (Drisdol) 50,000 Unit Cap, 50,000 UNIT PO QWEEK, (Reported) Scheduled PRN Albuterol Sulfate (Ventolin Hfa) 108 Mcg/Act Aer, 2 PUFFS INH QID PRN for SHORTNESS OF BREATH, (Reported) Alprazolam (Alprazolam) 1 Mg Tab, 1 MG PO Q8H PRN for ANXIETY, (Reported) Meloxicam (Meloxicam) 15 Mg Tab, 15 MG PO DAILY PRN for PAIN, (Reported) Oxycodone/Acetaminophen (Percocet 5MG/325MG Tablet) 1 Tab Tab, 2 TAB PO Q4HP PRN for SEVERE PAIN (PS 8-10) Prazosin Hcl (Prazosin HCl) 2 Mg Cap, 2 MG PO QHS PRN for NIGHTMARES, (Reported) Tramadol HCl (Tramadol HCl) 50 Mg Tab, 50 MG PO for BACK PAIN, (Reported) Allergies Coded Allergies: Bee Venom (Unverified Allergy, Unknown, 09/12/17) VANDANA TALLEY Sep 15, 2017 09:40 GAIL KLINE MD Sep 22, 2017 12:06
--- NOTE | 2017-09-15 12:47 | ECGEPIP ---
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
== END 2017-09-15 10:31 | disposition home or self-care (01) | DRG 463 ==
LOC: M ED 15:57 → M ED INP 18:49 → M MSPAV 20:26
PROVIDERS: ADMIT Hospitalist; ATTEND Internal Medicine Nephrology
DX: N12 Tubulo-interstitial nephritis, not specified as acute or chronic (principal); E78.5 Hyperlipidemia, unspecified; F41.9 Anxiety disorder, unspecified; M54.5 Low back pain; F43.10 Post-traumatic stress disorder, unspecified; Z91.038 Other insect allergy status; Z87.442 Personal history of urinary calculi; F17.210 Nicotine dependence, cigarettes, uncomplicated; L28.0 Lichen simplex chronicus; G43.909 Migraine, unspecified, not intractable, without status migrainosus; G89.29 Other chronic pain

== ENCOUNTER 2017-09-29 11:08 | Day surgery (SDC) | payer OTHER ==
[~2017-09-29] VITALS: Ht 154.9 cm; Wt 74.4 kg
[~2017-09-29 11:08] MED LIST changes: +ALPR1TAB3 PO; +ATOR40TA75 PO; +DRIS50002 PO; +GABA-282 PO; +LEVA1TAB2 PO; +MELO15TA4 PO; +PERCOCET PO; +PRAZ2CAP PO; +VENTAER INH; +ZANA4TAB PO
[2017-09-29] MEDS ORDERED: NS 1,000 ML IV ONE (12:00)
[2017-09-29] MEDS ORDERED: PROPOFOL 200 MG/20 ML VIAL As Ordered ONE ×2 (13:17→13:24)
[2017-09-29] MEDS ORDERED: LIDOCAINE 2% INJ 100 MG/5 ML SDV (FOR ANES.) As Ordered ONE (13:18)
--- NOTE | 2017-09-29 13:37 | ROOR ---
Patient Name: Bren Perez Procedure Date: 09/29/2017 1:11 PM Date of : 1965 Age: 51 Room: [facility] Gender: Female Note Status: Finalized Procedure: Colonoscopy Indications: Screening for colorectal malignant neoplasm Providers: Edwar DONNELLY MD Referring MD: JARRETT STYLES Requesting Provider: Medicines: Monitored Anesthesia Care Complications: No immediate complications. Procedure: Pre-Anesthesia Assessment: - The heart rate, respiratory rate, oxygen saturations, blood pressure, adequacy of pulmonary ventilation, and response to care were monitored throughout the procedure. The Colonoscope was introduced through the anus and advanced to the cecum, identified by appendiceal orifice and ileocecal valve. The colonoscopy was performed without difficulty. The patient tolerated the procedure well. The quality of the bowel preparation was good. Findings: The perianal and digital rectal examinations were normal. Mild diverticulosis and small internal hemorrhoids. The entire examined colon appeared normal on direct and retroflexion views. Impression: - Mild diverticulosis and small internal hemorrhoids. - The colon is otherwise normal on direct and retroflexion views. - No specimens collected. Recommendation: - Repeat colonoscopy in 10 years for screening purposes. Edwar Donnelly MD Edwar DONNELLY MD 09/29/2017 1:37:50 PM This report has been signed electronically. Number of Addenda: 0 Note Initiated On: 09/29/2017 1:11 PM Estimated Blood Loss: Estimated blood loss: none.
[2017-09-29 13:55] VITALS: BP 129/74
== END 2017-09-29 14:04 | disposition home or self-care (01) ==
LOC: M OPP 11:08
PROVIDERS: ATTEND Internal Medicine Gastroenterology
DX: Z12.11 Encounter for screening for malignant neoplasm of colon (principal); K57.30 Diverticulosis of large intestine without perforation or abscess without bleeding; K64.8 Other hemorrhoids; R12 Heartburn; K21.9 Gastro-esophageal reflux disease without esophagitis; M54.9 Dorsalgia, unspecified; Z78.0 Asymptomatic menopausal state; F41.9 Anxiety disorder, unspecified; F32.9 Major depressive disorder, single episode, unspecified; Z86.14 Personal history of Methicillin resistant Staphylococcus aureus infection; Z87.442 Personal history of urinary calculi; F17.210 Nicotine dependence, cigarettes, uncomplicated; Z91.030 Bee allergy status; Z79.899 Other long term (current) drug therapy

== ENCOUNTER 2017-12-03 22:23 | Emergency (ER) | payer OTHER ==
[2017-12-03] MEDS: CLINDAMYCIN 150 MG CAP PO (23:15)
[2017-12-03] MEDS: diphenhydrAMINE 50 MG CAP PO (23:15)
[2017-12-03] MEDS: predniSONE 20 MG TAB PO (23:30)
== END 2017-12-03 23:51 | disposition home or self-care (01) ==
LOC: M ED 22:23
DX: L03.116 Cellulitis of left lower limb (principal); J45.909 Unspecified asthma, uncomplicated; F17.200 Nicotine dependence, unspecified, uncomplicated; Z79.899 Other long term (current) drug therapy; Z91.030 Bee allergy status
CPT/HCPCS: 99282

== ENCOUNTER → 2018-02-08 | Outpatient (REF) | payer OTHER | LOC: M LAB REF 16:25 | DX: F41.8 Other specified anxiety disorders (principal) ==

== ENCOUNTER 2018-02-16 09:44 | Emergency (ER) | payer OTHER ==
[2018-02-16] MEDS: KETOROLAC 30 MG/ML VIAL (J1885) IV (10:15)
[2018-02-16] MEDS: ONDANSETRON 4MG/2ML VIAL (J2405) IV (10:15)
[2018-02-16] MEDS: NS 1,000 ML IV (10:15)
[2018-02-16] MEDS: MORPHINE 4 MG/ML 1ML VIAL/SYRINGE (J2270) IV ×2 (10:22→11:29)
[2018-02-16 10:31] LABS: BASO # 0.1 10^3/uL (0.0-0.2); BASO % 0.4 % (0.0-1.0); EOS # 0.3 10^3/uL (0.0-0.50); EOS % 1.6 % (0.0-3.0); HEMATOCRIT 44.6 % (36.0-47.0); HEMOGLOBIN 15.1 g/dl (12.0-15.5); IMMATURE GRANULOCYTE % 0.3 % (0-3.0); LYMPH # 2.8 10^3/uL (1.5-4.5); LYMPH % 17.8 % (24.0-44.0); MEAN CORPUSCULAR HEMOGLOBIN 30.8 pg (27.0-33.0); MEAN CORPUSCULAR HGB CONC 33.9 g/dl (32.0-36.5); MONO # 1.1 10^3/uL (0.0-0.8); MONO % 7.1 % (0.0-5.0); NEUTROPHILS # 11.5 10^3/uL (1.8-7.7); NEUTROPHILS % 72.8 % (36.0-66.0); PLATELET COUNT, AUTOMATED 333 10^3/uL (150-450); RED CELL DISTRIBUTION WIDTH 13.1 % (11.5-14.5); WHITE BLOOD COUNT 15.8 10^3/uL (4.0-10.0)
[2018-02-16 10:39] LABS: KETONE, URINE AUTO RFX NEGATIVE (NEGATIVE); LEUKOCYTE ESTERASE UR AUTO RFX 3+ (NEGATIVE); MUCUS, URINE RFX SMALL (NEGATIVE); NITRITE, URINE AUTO RFX POSITIVE (NEGATIVE); RBC, URINE AUTO RFX 20 /HPF (0-3); SPECIFIC GRAVITY UR AUTO RFX 1.018 (1.002-1.035); SQUAM EPITHELIAL CELL UR AURFX 0 /HPF (0-6); WBC, URINE AUTO RFX TNTC /HPF (0-3)
[2018-02-16 10:59] LABS: ALBUMIN 4.1 GM/DL (3.2-5.2); ALBUMIN/GLOBULIN RATIO 0.98 (1.00-1.93); ALKALINE PHOSPHATASE 92 U/L (45-117); ALT/SGPT 40 U/L (12-78); ANION GAP 7 MEQ/L (8-16); AST/SGOT 31 U/L (7-37); BILIRUBIN,DIRECT 0.2 MG/DL (0.0-0.2); BLOOD UREA NITROGEN 14 MG/DL (7-18); CALCIUM LEVEL 9.3 MG/DL (8.5-10.1); CARBON DIOXIDE LEVEL 25 MEQ/L (21-32); CHLORIDE LEVEL 106 MEQ/L (98-107); CREATININE FOR GFR 0.73 MG/DL (0.55-1.30); GLOMERULAR FILTRATION RATE > 60.0 (>51); GLUCOSE, FASTING 87 MG/DL (70-100); POTASSIUM SERUM 3.9 MEQ/L (3.5-5.1); SODIUM LEVEL 138 MEQ/L (136-145); TOTAL PROTEIN 8.3 GM/DL (6.4-8.2)
[2018-02-16] MEDS: PERCOCET 5MG/325MG TAB PO (12:27)
[2018-02-16] MEDS: CIPROFLOXACIN 400 MG in APPROPRIATE DILUENT 1 EA IV (12:27)
[2018-02-16] MEDS: PHENAZOPYRIDINE 100 MG TAB PO (13:30)
== END 2018-02-16 13:43 | disposition home or self-care (01) ==
LOC: M ED 09:44
DX: N30.01 Acute cystitis with hematuria (principal); R93.5 Abnormal findings on diagnostic imaging of other abdominal regions, including retroperitoneum; I10 Essential (primary) hypertension; E78.5 Hyperlipidemia, unspecified; K57.30 Diverticulosis of large intestine without perforation or abscess without bleeding; F17.210 Nicotine dependence, cigarettes, uncomplicated; Z79.899 Other long term (current) drug therapy; Z87.442 Personal history of urinary calculi; Z91.030 Bee allergy status
CPT/HCPCS: J2270

== ENCOUNTER 2018-07-12 10:39 | Emergency (ER) | payer OTHER ==
[2018-07-12] MEDS: diazePAM 5 MG TAB PO (11:25)
[2018-07-12] MEDS: KETOROLAC 60 MG/2 ML VIAL (J1885) IM (11:26)
== END 2018-07-12 12:51 | disposition home or self-care (01) ==
LOC: M ED 10:39
DX: S39.002A Unspecified injury of muscle, fascia and tendon of lower back, initial encounter (principal); X50.9XXA Other and unspecified overexertion or strenuous movements or postures, initial encounter; Y92.018 Other place in single-family (private) house as the place of occurrence of the external cause; I10 Essential (primary) hypertension; K21.9 Gastro-esophageal reflux disease without esophagitis; E78.9 Disorder of lipoprotein metabolism, unspecified; F90.9 Attention-deficit hyperactivity disorder, unspecified type; Z87.442 Personal history of urinary calculi; F19.21 Other psychoactive substance dependence, in remission
CPT/HCPCS: J1885

== ENCOUNTER 2021-04-06 15:56 | Emergency (ER) | payer MEDICARE, OTHER, SELFPAY ==
[~2021-04-06] VITALS: Ht 162.6 cm; Wt 65.9 kg
[~2021-04-06 15:56] MED LIST changes: -/ONDA4TA OR; +BENA25TA10 PO; +CIPR-249 PO; +CYCL-707; -CYCL10TA; -DRIS50002 PO; +DRIS50003 PO; +GABA600T4 PO; +KETO10TAB PO; +MELO15TA28 PO; -MELO15TA4 PO; +ONDA-1 OR; +PERC5TAB12 PO; +PYRI1TAB5 PO; +RANI150T PO; +VALI5TAB PO; -VITA1CAP40; +VITA50005; +ZOFR4TAB14 PO
[2021-04-06] MEDS ORDERED: LORazepam 2 MG/ML VIAL IV STA (16:18)
[2021-04-06 17:28] LABS: AMPHETAMINES LEVEL URINE POSITIVE (NEGATIVE); BARBITURATES URINE NEGATIVE (NEGATIVE); BENZODIAZEPINES URINE NEGATIVE (NEGATIVE); CANNABINOIDS URINE POSITIVE (NEGATIVE); COCAINE METABOLITE URINE POSITIVE (NEGATIVE); METHADONE URINE NEGATIVE (NEGATIVE); OPIATES URINE NEGATIVE (NEGATIVE); PHENCYCLIDINE URINE NEGATIVE (NEGATIVE)
[2021-04-07 01:30] VITALS: BP 143/91
[2021-04-07] MEDS ORDERED: NEOSPORIN TOP OINT 15GM TOP ONE (01:55)
== END 2021-04-07 02:15 | disposition home or self-care (01) ==
LOC: M ED 15:56 → EDBD 15:56 → M ED 04-07 02:15
DX: F14.120 Cocaine abuse with intoxication, uncomplicated (principal); F41.9 Anxiety disorder, unspecified; R00.0 Tachycardia, unspecified; F19.10 Other psychoactive substance abuse, uncomplicated; M54.9 Dorsalgia, unspecified; F17.200 Nicotine dependence, unspecified, uncomplicated; Z91.030 Bee allergy status; Z79.899 Other long term (current) drug therapy
CPT/HCPCS: 80307; 96374; 99285; J2060